=== PATIENT | male | born 1965 | race Caucasian/White ===

== ENCOUNTER 2019-09-07 07:08 | Day surgery (SDC) | payer OTHER ==
[~2019-09-07] VITALS: Ht 175.3 cm; Wt 120.2 kg
[2019-09-07] MEDS ORDERED: fentaNYL 0.05 MG/ML VIAL ONE (08:08)
[2019-09-07] MEDS: fentaNYL 0.05 MG/ML VIAL IVP ONE (08:50)
[2019-09-07] MEDS: LIDOCAINE 2% 100 MG/5 ML UJET TP ONE (08:50)
== END 2019-09-07 09:40 | disposition home or self-care (01) ==
LOC: MOR 07:08 → MMU 07:09 → MOR 09:40
PROVIDERS: ATTEND Internal Medicine Gastroenterology
DX: K62.5 Hemorrhage of anus and rectum (principal); D12.2 Benign neoplasm of ascending colon; D12.3 Benign neoplasm of transverse colon; K57.30 Diverticulosis of large intestine without perforation or abscess without bleeding; G43.909 Migraine, unspecified, not intractable, without status migrainosus; I10 Essential (primary) hypertension; K21.9 Gastro-esophageal reflux disease without esophagitis; E78.00 Pure hypercholesterolemia, unspecified; E11.9 Type 2 diabetes mellitus without complications; Z87.891 Personal history of nicotine dependence; Z79.82 Long term (current) use of aspirin; Z79.84 Long term (current) use of oral hypoglycemic drugs; Z79.899 Other long term (current) drug therapy; E66.9 Obesity, unspecified; Z68.39 Body mass index [BMI] 39.0-39.9, adult; Z79.01 Long term (current) use of anticoagulants; Z98.61 Coronary angioplasty status; Z98.890 Other specified postprocedural states
CPT/HCPCS: J3010